=== PATIENT | female | born 1975 | race Hispanic/Latino ===

== ENCOUNTER 2016-12-13 18:35 | Emergency (ER) | payer BC ==
[2016-12-13 18:39] VITALS: BP 133/82; PULSE 82; RESP 16; TEMP 98; O2SAT 100
[2016-12-13] MEDS ORDERED: Sodium Chloride 0.9% 1,000 ML IV STA (18:59)
[2016-12-13 19:19] LABS: BASO % 0.5 % (0.0-2.0); EOS # 0.2 K/uL (0.0-0.7); HEMOGLOBIN 13.7 g/dL (12.0-16.0); LYMPH # 3.1 K/uL (1.0-4.3); LYMPH % 32.5 % (20.0-40.0); MEAN CELL VOLUME 95.9 fl (81.0-99.0); MEAN CORPUSCULAR HEMOGLOBIN 32.4 pg (27.0-31.0); MEAN CORPUSCULAR HGB CONC 33.7 g/dL (33.0-37.0); MEAN PLATELET VOLUME 9.7 fl (7.2-11.7); MONO # 0.7 K/uL (0.0-0.8); MONO % 7.4 % (0.0-10.0); NEUT # 5.5 K/uL (1.8-7.0); NEUT % 57.6 % (50.0-75.0); RBC 4.24 Mil/uL (3.80-5.20); RED CELL DISTRIBUTION WIDTH 12.4 % (11.5-14.5); WHITE BLOOD COUNT 9.5 K/uL (4.8-10.8)
[2016-12-13 19:26] LABS: ALB/GLOB RATIO 1.4 (1.0-2.1); ALBUMIN 4.4 g/dL (3.5-5.0); ALT/SGPT 27 U/L (9-52); AST/SGOT 21 U/L (14-36); BLOOD UREA NITROGEN 17 mg/dl (7-17); CALCIUM 9.4 mg/dL (8.4-10.2); GFR AFRICAN-AMERICAN > 60; GFR NON-AFRICAN AMERICAN > 60
--- NOTE | 2016-12-13 19:28 | ED PDOC ---
HPI: Allergic Reaction Time Seen by Provider: 12/13/16 19:02 Chief Complaint (Nursing): Allergic Reaction Chief Complaint (Provider): allergic reaction History Per: Patient History/Exam Limitations: no limitations Additional Complaint(s): 41yo F inED for eval of acute allergic reaction after eating carrots from [facility] [facility] states she developed itching to throat, swelling to eyes b/l and watery eyes. negative for: CP, SOB, abd pain, swelling to ext/lips or tongue. denies dizziness, INIGUEZ or vision changes. no hx of similar episodes in the past Past Medical History Reviewed: Historical Data, Nursing Documentation, Vital Signs Vital Signs: Last Vital Signs Temp 98.0 F 12/13/16 18:37 Pulse 82 12/13/16 18:37 Resp 16 12/13/16 18:37 BP 133/82 12/13/16 18:37 Pulse Ox 100 12/13/16 18:37 - Medical History PMH: No Chronic Diseases - Family History Family History: States: No Known Family Hx - Home Medications Home Medications: Ambulatory Orders Medication Instructions Recorded Cetirizine HCl [Zyrtec] 10 mg PO DAILY #30 cap 12/13/16 Famotidine [Pepcid] 20 mg PO BID #16 tab 12/13/16 predniSONE [predniSONE Tab] 20 mg PO BID #8 tab 12/13/16 - Allergies Allergies/Adverse Reactions: Allergies Allergy/AdvReac Type Severity Reaction Status Date / Time au Allergy RASH Verified 12/13/16 18:36 Review of Systems ROS Statement: Except As Marked, All Systems Reviewed And Found Negative Respiratory: Negative for: Cough, Shortness of Breath Gastrointestinal: Negative for: Nausea, Vomiting, Abdominal Pain Skin: Positive for: Rash Physical Exam - Reviewed Nursing Documentation Reviewed: Yes Vital Signs Reviewed: Yes - Physical Exam Appears: Positive for: Well, Non-toxic, No Acute Distress Skin: Positive for: Normal Color, Warm. Negative for: Rash Eye Exam: Positive for: EOMI, PERRL, Periorbital swelling (mild), Conjunctival injection ENT: Positive for: Normal ENT Inspection Neck: Positive for: Normal, Painless ROM Cardiovascular/Chest: Positive for: Regular Rate, Rhythm Respiratory: Positive for: CNT, Normal Breath Sounds Gastrointestinal/Abdominal: Positive for: Normal Exam, Bowel Sounds, Soft. Negative for: Tenderness Back: Positive for: Normal Inspection Extremity: Positive for: Normal ROM Neurologic/Psych: Positive for: Alert, Oriented - Laboratory Results Result Diagrams: 12/13/16 19:05 12/13/16 19:05 - ECG O2 Sat by Pulse Oximetry: 100 - Progress ED Course And Treament: pt took benadlry at home 50mg pt will be given IV solumedrol, NS and pepcid. Re-evaluation Time: 20:08 Condition: Improved Disposition - Clinical Impression Clinical Impression: Allergic reaction - Patient ED Disposition Is Patient to be Admitted: No Counseled Patient/Family Regarding: Studies Performed, Diagnosis, Need For Followup, Rx Given - Disposition Disposition: Routine/Home Disposition Time: 20:00 Condition: IMPROVED Prescriptions: Cetirizine HCl [Zyrtec] 10 mg PO DAILY #30 cap Famotidine [Pepcid] 20 mg PO BID #16 tab predniSONE [predniSONE Tab] 20 mg PO BID #8 tab Instructions: Allergies (ED) Forms: [facility] (Malaysian) Medical Decision Making ED Course and Treatment: 12/13/16 20:09 PT improved in ED will be d/c with pepcid, zystric and stroids advised to have allergiest f.u pt well appearing no acute distress - Lab Interpretations Lab Results: 12/13/16 19:05 12/13/16 19:05 Lab Results 12/13/16 19:05: Sodium 138, Potassium 3.8, Chloride 105, Carbon Dioxide 23, Anion Gap 14, BUN 17, Creatinine 0.7, Est GFR ( Amer) > 60, Est GFR (Non- Af Amer) > 60, Random Glucose 136 H, Calcium 9.4, Total Bilirubin 0.3, AST 21, ALT 27, Alkaline Phosphatase 66, Total Protein 7.5, Albumin 4.4, Globulin 3.1, Albumin/Globulin Ratio 1.4 12/13/16 19:05: WBC 9.5, RBC 4.24, Hgb 13.7, Hct 40.6, MCV 95.9, MCH 32.4 H, MCHC 33.7, RDW 12.4, Plt Count 201, MPV 9.7, Neut % (Auto) 57.6, Lymph % (Auto) 32.5, [place] % (Auto) 7.4, Eos % (Auto) 2.0, Baso % (Auto) 0.5, Neut # 5.5, Lymph # 3.1, [place] # 0.7, Eos # 0.2, Baso # 0.0 - Medication Orders Current Medication Orders: Discontinued Medications Famotidine (Pepcid) 20 mg IVP STAT STA Stop: 12/13/16 19:00 Last Admin: 12/13/16 19:09 Dose: 20 mg Sodium Chloride (Sodium Chloride 0.9%) 1,000 mls @ 1,000 mls/hr IV .Q1H STA Stop: 12/13/16 19:58 Last Admin: 12/13/16 19:09 Dose: 1,000 mls/hr Methylprednisolone (Solu-Medrol) 125 mg IVP ONCE ONE Stop: 12/13/16 19:00 Last Admin: 12/13/16 19:09 Dose: 125 mg
== END 2016-12-13 20:53 | disposition home or self-care (01) ==
LOC: H.ER 18:35
DX: T78.40XA Allergy, unspecified, initial encounter (principal)
CPT/HCPCS: 80053; 85025; 96374; 96375; 99283; J2930; J7040